=== PATIENT | female | born 1990 | race Caucasian/White ===

== ENCOUNTER 2024-04-16 12:39 | Inpatient (IN) | payer OTHER ==
[~2024-04-16] VITALS: Ht 154.9 cm; Wt 75.7 kg
[~2024-04-16 12:39] MED LIST: DIALYVITE 800800 MCG PO
[2024-04-17 05:04] VITALS: BP 108/73
[2024-04-17 07:07] LABS: HEMATOCRIT 27.4 % (36.0-45.00); MEAN CELL VOLUME 82.3 fL (80.00-100.00); MEAN CORPUSCULAR HGB CONC 31.8 g/dl (32.0-36.0); PLATELET COUNT 420 K/uL (150-450); RED BLOOD COUNT 3.33 M/uL (4.00-6.00)
[2024-04-17 07:08] LABS: HEMOGLOBIN 8.7 g/dL (12.0-15.00); MEAN CORPUSCULAR HEMOGLOBIN 26.1 pg (27.00-32.0)
[2024-04-17] MEDS ORDERED: CEFAZOLIN SODIUM 1,000 MG VIAL IV SCH ×2 (07:15→18:00)
[2024-04-17 07:32] VITALS: BP 92/60; O2SAT 97
[2024-04-17] MEDS ORDERED: ADULT LOW DOSE81 M1 PO (07:56)
[2024-04-17] MEDS ORDERED: PRENATAL TABLE1 EAC4 PO (07:57)
[2024-04-17] MEDS ORDERED: MEPERIDINE HCL/PF 50 MG/ML VIAL IM SCH (14:45)
[2024-04-17] MEDS ORDERED: MEPERIDINE HCL/PF 50 MG,MEPERIDINE HCL/PF 25 MG IM SCH (15:00)
[2024-04-17] MEDS ORDERED: ERYTHROMYCIN BASE OPHT 1GM EACH TUBE OP ONE (15:30)
[2024-04-17] MEDS ORDERED: CARBOPROST TROMETHAMINE 250 MCG/ML AMPUL IM ONE (15:30)
[2024-04-17] MEDS ORDERED: OXYTOCIN 10 UNITS/ML VIAL IV ONE (15:30)
[2024-04-17] MEDS ORDERED: MORPHINE SULFATE 4 MG/ML VIAL IV ONE ×2 (16:00→16:30)
[2024-04-17 18:00] LABS: HEMATOCRIT 27.3 % (36.0-45.00); HEMOGLOBIN 9.2 g/dL (12.0-15.00); MEAN CELL VOLUME 81.5 fL (80.00-100.00); MEAN CORPUSCULAR HEMOGLOBIN 27.5 pg (27.00-32.0); MEAN CORPUSCULAR HGB CONC 33.7 g/dl (32.0-36.0); PLATELET COUNT 341 K/uL (150-450); RED BLOOD COUNT 3.34 M/uL (4.00-6.00); RED CELL DISTRIBUTION WIDTH 17.9 % (11.5-14.5)
[2024-04-17] MEDS ORDERED: PROMETHAZINE HCL 25 MG/ML AMPUL IV SCH (18:00)
[2024-04-17 19:43] VITALS: BP 102/55
[2024-04-17 21:45] LABS: HEMATOCRIT 27.9 % (36.0-45.00); MEAN CELL VOLUME 81.8 fL (80.00-100.00); MEAN CORPUSCULAR HEMOGLOBIN 26.4 pg (27.00-32.0); MEAN CORPUSCULAR HGB CONC 32.3 g/dl (32.0-36.0); PLATELET COUNT 343 K/uL (150-450); RED BLOOD COUNT 3.41 M/uL (4.00-6.00); RED CELL DISTRIBUTION WIDTH 18.2 % (11.5-14.5)
[2024-04-17 23:34] VITALS: BP 111/69
[2024-04-17 23:54] VITALS: BP 111/69
[2024-04-18 00:33] VITALS: BP 111/67
[2024-04-18 02:50] VITALS: BP 114/66
[2024-04-18 05:43] VITALS: BP 112/69
[2024-04-18 07:34] VITALS: BP 109/63
[2024-04-18] MEDS ORDERED: NAPROXEN 500 MG TABLET PO SCH (09:00)
[2024-04-18] MEDS ORDERED: HYDROXYCHLOROQUINE SULFATE 200 MG TABLET PO SCH (09:00)
[2024-04-18 09:10] LABS: HEMATOCRIT 27.4 % (36.0-45.00); HEMOGLOBIN 9.2 g/dL (12.0-15.00); MEAN CELL VOLUME 81.4 fL (80.00-100.00); MEAN CORPUSCULAR HEMOGLOBIN 27.3 pg (27.00-32.0); MEAN CORPUSCULAR HGB CONC 33.5 g/dl (32.0-36.0); PLATELET COUNT 325 K/uL (150-450); RED BLOOD COUNT 3.37 M/uL (4.00-6.00); RED CELL DISTRIBUTION WIDTH 18.2 % (11.5-14.5)
[2024-04-18 11:13] VITALS: BP 109/68
[2024-04-18 13:42] VITALS: BP 123/81
[2024-04-19 00:34] VITALS: BP 113/73
[2024-04-19 08:08] LABS: HEMATOCRIT 26.9 % (36.0-45.00); MEAN CELL VOLUME 82.3 fL (80.00-100.00); MEAN CORPUSCULAR HEMOGLOBIN 27.6 pg (27.00-32.0); MEAN CORPUSCULAR HGB CONC 33.6 g/dl (32.0-36.0); PLATELET COUNT 322 K/uL (150-450); RED BLOOD COUNT 3.27 M/uL (4.00-6.00); RED CELL DISTRIBUTION WIDTH 17.8 % (11.5-14.5)
[2024-04-19] MEDS ORDERED: HYDROXYCHLOROQUINE SULFATE 200 MG TABLET PO SCH (11:33)
[2024-04-19 12:09] VITALS: BP 129/84
[2024-04-19] MEDS ORDERED: IRON FUM,PS/FOLIC/BCOMP,C NO.9 1 CAP CAPSULE PO SCH (17:00)
== END 2024-04-19 14:31 | disposition home or self-care (01) | DRG 788 ==
LOC: OB/GYN 04-17 04:12 → LDR 04-17 04:12 → O/R 04-17 12:44 → OB/GYN 04-17 12:51 → LDR 04-19 12:29 → OB/GYN 04-19 14:31
PROVIDERS: ADMIT Specialist; ATTEND Specialist
PROC: 0UCC0ZZ Extirpation of Matter from Cervix, Open Approach (ICD-10-PCS; 2024-04-17)
PROC: 4A1HXCZ Monitoring of Products of Conception, Cardiac Rate, External Approach (ICD-10-PCS; 2024-04-17)
PROC: 10D00Z1 Extraction of Products of Conception, Low, Open Approach (ICD-10-PCS; principal; 2024-04-17 12:30)
DX: O34.211 Maternal care for low transverse scar from previous cesarean delivery (principal); Z3A.38 38 weeks gestation of pregnancy; Z37.0 Single live birth; Z20.822 Contact with and (suspected) exposure to COVID-19